=== PATIENT | female | born 1960 | race Caucasian/White ===

== ENCOUNTER 2021-08-28 15:50 | Outpatient (CLI) | payer MEDICAID, SELFPAY ==
[2021-08-28 16:42] LABS: Absolute Lymphocyte Count 2.49 X10^3/uL (0.83-4.51); Absolute Neutrophil Count 5.2 X10^3/uL (2.0-7.7); Basophil# 0.04 X10^3/uL; Basophil% 0.5 % (0-1); Eosinophils% 2.3 % (0-5); Hematocrit 41.7 % (37-47); Lymphocyte # 2.49 X10^3/ul (0.83-4.51); Lymphocyte % 28.9 % (19-41); Mean Corp Hgb Conc 31.2 g/dL (32-36); Mean Corpuscular Hgb 27.4 pg (27.0-32.0); Mean Platelet Vol. 10.6 fl (6.2-12.0); Monocyte# 0.66 X10^3/uL; Monocyte% 7.7 % (0-10); NRBC Flagged by Analyzer 0 % (0-5); Neutrophil # 5.19 X10^3/uL (2.7-7.7); Neutrophil % 60.1 % (47-70); Platelet Count 247 K/mm3 (150-450); RBC Distribution Width SD 45.1 fl (35.1-43.9); Red Blood Count 4.74 M/mm3 (4.2-5.4); White Blood Count 8.6 K/mm3 (4.4-11.0)
[2021-08-28 16:59] LABS: ALB/GLOB Ratio 0.8 RATIO (0.9-2.4); AST(SGOT) 19 U/L (15-37); Alanine Aminotransfer ALT/SGPT 36 U/L (13-56); Albumin, Serum 3.7 g/dL (3.2-5.0); Alkaline Phosphatase 65 U/L (45-117); Anion Gap 6 (5-15); BUN 19 mg/dL (7-18); BUN/Creat Ratio 20.3 RATIO (10-20); Calcium,Total 9.3 mg/dL (8.5-10.1); Chloride 108 mmol/L (98-107); Cholesterol 226 mg/dL (200); Creatinine, Serum 0.94 mg/dL (0.55-1.02); EST Glomerular Filtration Rate 65 mL/min (>60); Est Glom Filt Rate - Afr Amer 79 mL/min (>60); Globulin 4.5 g/dL (2.2-4.2); Glucose 91 mg/dL (74-106); High Density Lipoprotein 39 mg/dL; Protein, Total 8.2 g/dL (6.4-8.2); Sodium Level 141 mmol/L (136-145); Triglycerides 154 mg/dL; Very Low Density Lipoprotein 31 mg/dL (5-40)
[2021-08-28 17:31] LABS: Vitamin B12 538 pg/mL (211-911)
[2021-08-28 17:33] LABS: Hemoglobin A1c 5.5 % (3.8-5.6)
== END 2021-08-28 23:59 | disposition short-term general hospital (02) ==
LOC: BIMLAB 15:51
PROVIDERS: PCP Internal Medicine; Visit Provider Internal Medicine
DX: F41.9 Anxiety disorder, unspecified (principal); F32.A Depression, unspecified; R73.03 Prediabetes; G62.9 Polyneuropathy, unspecified; E66.9 Obesity, unspecified
CPT/HCPCS: 36415; 80053; 80061; 82607; 83036; 85025

== ENCOUNTER → 2021-12-26 | Outpatient (CLI) | payer MEDICAID, SELFPAY ==
--- NOTE | 2021-12-26 14:54 | RAD_ITS ---
STUDY: X-RAY - PELVIS AND BILATERAL HIP REASON FOR EXAM: Female, 61 years old. Bilateral hip pain TECHNIQUE: XR Hips Bilateral with Pelvis when performed; 2 Views COMPARISON: None. FINDINGS: There is a non-specific bowel gas pattern. Normal visualized soft tissue structures. Normal bilateral iliac wings, sacroiliac joints and visualized sacrum. Normal bilateral superior and inferior pubic rami. Normal pubic symphysis. Normal bilateral ischial tuberosities. Normal visualized femoral head. Normal acetabulum. Normal hip joint. RAD/Hips B/L min 2 views w/ Pelvis IMPRESSION: No acute findings. Electronically Signed: Waqar Alva MD at 17:26 EDT ,
--- NOTE | 2021-12-26 14:54 | RAD_ITS ---
STUDY: XR Knee 3 Views 12/26/2021 5:25 PM REASON FOR EXAM: Female, 61 years old. Bilateral Knee Pain TECHNIQUE: XR Knee 3 Views RIGHT COMPARISON: None FINDINGS: Normal visualized distal femur. Normal visualized proximal tibia and fibula. Normal proximal tibiofibular articulation. Normal medial femorotibial compartment. Normal lateral femorotibial compartment. Normal patellofemoral articulation. The soft tissue structures are unremarkable. RAD/Knee 3 Views IMPRESSION: There are no acute findings. Electronically Signed: Waqar Alva MD at 17:26 EDT ,
--- NOTE | 2021-12-26 14:59 | RAD_ITS ---
STUDY: XR Knee 3 Views 12/26/2021 5:24 PM REASON FOR EXAM: Female, 61 years old. pain in both knees TECHNIQUE: XR Knee 3 Views LEFT COMPARISON: None FINDINGS: Normal visualized distal femur. Normal visualized proximal tibia and fibula. Normal proximal tibiofibular articulation. Normal medial femorotibial compartment. Normal lateral femorotibial compartment. Normal patellofemoral articulation. The soft tissue structures are unremarkable. RAD/Knee 3 Views IMPRESSION: There are no acute findings. Electronically Signed: Waqar Alva MD at 17:27 EDT ,
[2021-12-26 16:35] LABS: Color, Urine Straw (Yellow); Glucose, Dipstick Normal (Normal); Ketone-Dipstick Negative (Negative); Leukocyte Esterase-Dipstick Negative /ul (Negative); Nitrite-Dipstick Negative (Negative); Occult Blood-Urine Negative /ul (Negative); Protein-Dipstick 15 mg/dl (Negative); Specific Gravity, Urine 1.025 (1.002-1.030); Urine Bilirubin Dipstick Negative (Negative); Urine Clarity Clear (Clear); Urine Urobilinogen Normal (Normal)
[2021-12-26 16:48] LABS: Bacteria 1+ /hpf (None Seen); Mucous, Urine 1+ /hpf (<or=2+); Red Blood Cells-Urine 0-5 SEEN /hpf (0-5); Squamous Epithelial Cells - UA 0-5 SEEN /hpf (5-10); White Blood Cells 0-5 SEEN /hpf (0-5)
== END | disposition home or self-care (01) ==
PROVIDERS: PCP Internal Medicine; Referring Provider Internal Medicine; Visit Provider Internal Medicine
DX: M25.551 Pain in right hip (principal); M25.552 Pain in left hip; M25.561 Pain in right knee; M25.562 Pain in left knee; R39.15 Urgency of urination; N39.490 Overflow incontinence
CPT/HCPCS: 73521; 73562; 81001; 87086; 87088

== ENCOUNTER 2022-05-01 11:30 | Outpatient (RCR) | payer MEDICAID, SELFPAY ==
--- NOTE | 2022-01-18 15:31 | HP.PTEVAL_ITS ---
Patient's Visit Information MULUGETA MATIAS is a 61 year old F referred to Physical Therapy by Dr. 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 Date of Evaluation: 01/18/22 Physical Therapist: Sayra Lopez PT, Cert MDT - Visit Plan Frequency: 1x/Week Duration: 6 WKS Plan: AQUATIC THERAPY FOR PAIN RELIEF, POSTURE CORRECTION/STRENGTHENING, INSTRUCTION IN APPROPRIATE BODY MECHANICS AND ACTIVITY MODIFICATIONS. DLS STARTING WITH A NEUTRAL SPINE PROGRESSING ROM TOLERATED. JOSEP LE ROM, STRETCHING AND STRENGTHENING. HEP INSTRUCTION. 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 CURRENTLY ABOUT 3 HOURS A WEEK. ONE STORY HOME WITH LAUNDRY IN BASEMENT. Disability: NO. Present symptoms: CENTRAL LOW BACK PAIN. JOSEP HIP AND KNEE PAIN R > LEFT. CHRONIC TOE NUMBNESS X ABOUT ONE YEAR. PLANTAR FASCITIS IN R FOOT. Present since: LAST SUMMER. Pain Scale: WORST 7/10, LEAST 1/10. Currently: 08/13. Commenced as a result of: NO APPARENT REASON BUT WAS MOVING. PACKING BOXES AND LIFTING HEAVY THINGS ALL OF A SUDDEN TO GET HOUSE SOLD. WAS SEDENTARY PRIOR. Symptoms at onset: JOSEP KNEE AND HIP PAIN. FIRST NOTICED IT BEING DIFFICULT TO GET UP OUT OF CHAIR. Worse: STEPS, GETTING UP OUT OF A CHAIR, BENDING OVER TO PICK SOMETHING UP OFF THE FLOOR, BEING ON FEET TOO LONG, SITTING AND TWISTING TO PUT CONTRACT PAPER ON SHELVES IN NEW HOME. Better: SITTING, LYING DOWN, MALOXACAM. Disturbed sleep: YES - JOSEP HIP PAIN WAKES HER UP. L HIP HAS FOR YEARS BUT NOW R HIP TOO. Previous history/Previous treatment: BIG PROBLEM WITH L HIP ABOUT 15 YEARS AGO TREATED BY 2 COURSES OF PT THAT DIDN'T HELP. INTENSE CHIROPRACTIC AND ORHTOTICS EVENTUALLY HELPED. Treatment this episode: MALOXACAM, IBUPROFEN AND NEW ORTHOTICS. Coughin g/sneezing/straining: NEGATIVE. Gait: I DEFINATELY AM LIMPING ON MY R LEG MOST OF THE TIME. PREFERS TO GO UP STEPS WITH LEFT LEG AND HAS TO USE HANDRAIL. I FAVOR THE RIGHT SIDE. Difficulty initiating urination: NO. Bowel or Bladder Dysfunction: URINARY FREQUENCY. Accidents: HAD A FALL summer - TRIPPED OVER EXTENSION CORD AND DID A FACE PLANT HURTING ARMS WHEN THEY HYPEREXTENDED ON STEP - EVERYTHING HURT. EVERYTHING SEEMED TO GRADUALLY GET BETTER AND GET BACK TO WHERE THEY WERE. WAS STARTING TO FEEL WEAK IN LEGS PRIOR TO FALL. Unexplained weight loss: NO. Imaging: EXAM: XR LUMBOSACRAL SPINE, 2 OR 3 VIEWS. CLINICAL INDICATION: pain. TECHNIQUE: Frontal and lateral views of the lumbar spine and sacrum. This. report was created using [employer] report generation technology. COMPARISON: None. FINDINGS: VERTEBRAE: No acute fracture or subluxation. DISC SPACES: Multilevel disc space narrowing most pronounced at L5-S1. associated with vertebral body osteophytosis. Facet arthropathy noted at. L5-S1. RAD/Lumbar Spine 2 or 3 Views. IMPRESSION: . Diffuse spondylosis. . Electronically Signed: Morgan Mead MD. at 16:40 EDT. Reading Location ID and State: [address] [place] [address]. Tel , Service support , . PMH/Recent major surgery: DEPRESSION - Objective Sitting/Standing Posture: POOR. FH. RS'S. MILDLY REDUCED LUMBAR LORDOSIS. SLOUCHED IN SITTING. ANTERIOR PELVIC TILT IN STANDING. Lateral shift: NO. Relevant shift: N/A. Active Correction of posture: BETTER. Other Observations: INDEP GAIT INTO PT WITH DECREASED CADANCE AND MILD LIMP ON R LE. DIFFICULTY TRANSITIONING FROM SIT TO STAND AND INITIATING GAIT. JOSEP UE DEPENDENT TO TRANSFER FROM SIT TO STAND. Sensory deficit: JOSEP LE LIGHT TOUCH SENSATION IS GROSSLY INTACT AND SYMMETRICAL. ROM deficit: JOSEP HIP FLEXOR TIGHTNESS. MILD JOSEP HS TIGHTNESS AND GASTROC SOLEUS TIGHTNESS. Motor deficit: JOSEP LE'S 5/5. Dural Signs: NEGATIVE JOSEP LE'S. Lumbar mvmt loss: flex - NIL. ext - MIN. R SG - MIN. L SG - MOD. PATIENT C/O STIFFNESS WITH FLEXION AND JOSEP HIP PAIN WITH SG TESTING L > R. Core strength: POOR. Palpation: NO ACUTE LUMBAR TENDERNESS BUT JOSEP HIP TENDERNESS IN GREATER TROCH REGIONS RIGHT > LEFT. TREATMENT: NEUROMUSCULAR REEDUCATION - RETRAINING OF MVMT AND POSTURE FOR SITTING, LYING AND STANDING ACTIVITIES. - Balance/Special Test Scores Oswestry Low Back Score: 13 - Goals Goal 1:: DECREASE C/O LB AND JOSEP LE SX'S. Goal Time Frame: 4-6 Weeks Goal 2:: IMPROVE PERSONAL CARE, LIFTING, WALKING, STANDING, SOCIAL LIFE AND WORK/HOMEMAKING FUNCTION Goal Time Frame: 4-6 Weeks Goal 3:: INSTRUCT IN PROPHYLAXIS Goal Time Frame: 4-6 Weeks - Anticipated Interventions Patient/Client Instruction: Educate patient on: Condition, Plan of Care, Risk Factors For the Purpose of:: To improve self management Therapeutic Exercise to Include: Strength training, Body mechanics, Postural training, Flexibilty training, Gait and locomotor training, Neuromotor development, In an aquatic setting, Dynamic Lumbar Stabilization For the Purpose of:: To decrease pain, To improve muscle performance and motor function, To increase tolerance to activity/condition/position, To improve ability of physical actions for home/community/work/leisure, To improve gait and locomotor functions Thank you for the opportunity to evaluate your patient. For Medicare and Medicare HMO plans, please review the plan of care and approve it. It will need to be FAXED BACK to us at [phone] for Medicare purposes. For Medicare only, by signing this I certify the plan of care. Please let me know if there are questions or concerns regarding this plan of care. Physician Signature: Date:
--- NOTE | 2022-03-08 13:56 | HP.PTREVAL_ITS ---
Dr. 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 Please see the progress note below for an update on the physical therapy plan of care! Subjective: PATIENT REPORTS THAT THE PAIN SHE CAME HERE FOR IS NO BETTER BUT SHE DOES FEEL STRONGER AND THAT IS A BONUS. PATIENT REPORTS THE FIRST WEEK OF THERAPY SHE LEFT HOPEFUL BUT THEN SHE FEELS LIKE THE THERAPY WAS TOO MUCH TOO FAST. MODIFICATIONS IN POOL EX'S HELPED BUT LAST VISIT FELT LIKE TOO MUCH AGAIN. PATIENT REPORTS SHE DOES NOT WANT TO CONTINUE AQUATIC THERAPY DUE TO MULTIPLE REASONS - NOT BECAUSE OF THE THERAPIST - MAINLY DUE TO LOGISTICS, HOURS AND LACK OF PROGRESS SO FAR. WOULD REALLY LIKE TO TRY OTHER LAND EX OR MACHINES. HAS A [employer] MEMBERSHIP. PATIENT REPORTS SHE HASN'T EXPERIENCED ANY PAIN BAD SHE HAD BEFORE THE MALOXACAM SINCE SHE HAS BEEN ON IT. Objective/Function: PATIENT WAS SEEN TODAY FOR RE-ASSESSMENT OF PROGRESS TOWARD THE SET PT GOALS AND THE NEED FOR FURTHER PHYSICAL THERAPY VS READINESS FOR DISCHARGE. PATIENT IS NOT PROGRESSING WITH WATER EX AND REPORTS INCREASED PAIN AT TIMES AFTER AQUATIC THERAPY. SHE STATES SHE IS HOPING SHE IS A CANDIDATE TO TRY LAND THERAPY AND THIS PT IS AGREEABLE. UPON EXAM TODAY THERE ARE NO OBJECTIVE CHANGES WITH TESTING COMPARED TO INITIAL EVAL AND SHE IS APPROPRIATE FOR TRIAL OF LAND TREATMENT PER ORIGINAL POC TO HELP MEET SET GOALS. FURTHER EDUCATION GIVEN TODAY TO ADDRESS PATIENTS QUESTIONS ABOUT ANATOMY, PHYSIOLOGY AND POSSIBLE BENEFITS OF FURTHER PT. Plan Plan: CONSIDER LOW BACK/R PIRIFORMIS REGION US. POSTURE CORRECTION/STRENGTHENING, INSTRUCTION IN APPROPRIATE BODY MECHANICS AND ACTIVITY MODIFICATIONS. DLS STARTING WITH A NEUTRAL SPINE PROGRESSING ROM TOLERATED. JOSEP LE ROM, STRETCHING AND STRENGTHENING. HEP INSTRUCTION. Balance/Gait/Functional tests - Balance/Special Test Scores Oswestry Low Back Score: 16 Goals Goal 1:: DECREASE C/O LB AND JOSEP LE SX'S. Goal Time Frame: 4-6 Weeks Goal Progress: Not Progressing Goal 2:: IMPROVE PERSONAL CARE, LIFTING, WALKING, STANDING, SOCIAL LIFE AND WORK/HOMEMAKING FUNCTION Goal Time Frame: 4-6 Weeks Goal Progress: Not Progressing Goal 3:: INSTRUCT IN PROPHYLAXIS Goal Time Frame: 4-6 Weeks Goal Progress: Not Progressing Anticipated Interventions Patient/Client Instruction: Educate patient on: Condition, Plan of Care, Risk Factors For the Purpose of:: To improve self management Therapeutic Exercise to Include: Strength training, Body mechanics, Postural training, Flexibilty training, Gait and locomotor training, Neuromotor development, In an aquatic setting, Dynamic Lumbar Stabilization For the Purpose of:: To decrease pain, To improve muscle performance and motor function, To increase tolerance to activity/condition/position, To improve ability of physical actions for home/community/work/leisure, To improve gait and locomotor functions Please do not hesitate to contact me at [phone] by phone or if you have questions or concerns regarding this new plan of care! Sincerely, Sayra Lopez, PT, Cert MDT
--- NOTE | 2022-08-02 09:21 | HP.PT.NRP ---
MULUGETA MATIAS was seen in my office for initial evaluation on 01/18/22. The following Plan of Care was established for this patient: Initial Frequency: 1x/Week Initial Duration: 6 WKS Patient/Client Instruction: Educate patient on: Condition, Plan of Care, Risk Factors For the Purpose of:: To improve self management Therapeutic Exercise to Include: Strength training, Body mechanics, Postural training, Flexibilty training, Gait and locomotor training, Neuromotor development, In an aquatic setting, Dynamic Lumbar Stabilization For the Purpose of:: To decrease pain, To improve muscle performance and motor function, To increase tolerance to activity/condition/position, To improve ability of physical actions for home/community/work/leisure, To improve gait and locomotor functions This patient was last seen in our office 05/01/22. Pertinent comments regarding their Physical therapy will appear below: This patient has not returned to Physical Therapy and is appropriate to return to MD for further follow-up as needed. At this point I will be discontinuing this patient from physical therapy. I would be happy to see this patient again in the future if found appropriate by the physician. Thank you! Sayra Lopez, PT, Cert MDT Balance/Gait/Functional tests - Balance/Special Test Scores Oswestry Low Back Score: 16
== END 2022-05-01 19:00 | disposition home or self-care (01) ==
LOC: PT 11:30
PROVIDERS: PCP Internal Medicine; Referring Provider Orthopaedic Surgery; Visit Provider Orthopaedic Surgery
DX: G57.00 Lesion of sciatic nerve, unspecified lower limb (principal); M51.36 Other intervertebral disc degeneration, lumbar region; M47.816 Spondylosis without myelopathy or radiculopathy, lumbar region
CPT/HCPCS: 97035; 97112; 97113; 97162; 97164; 97530